=== PATIENT | male | born 1960 | race Caucasian/White ===

== ENCOUNTER 2023-07-03 07:34 | Emergency (ER) | payer OTHER, SELFPAY ==
[2023-07-03 07:43] VITALS: BP 149/103; PULSE 89; RESP 16; TEMP 36.6; O2SAT 97; BMI 27.3
--- NOTE | 2023-07-03 08:27 | ED_ITS ---
HPI - General Adult General Date Seen: 07/03/23 Chief complaint: Unspecified Complaint, Adult Stated complaint: Choking on ham Time Seen by Provider: 07/03/23 08:04 Source: patient Mode of arrival: ambulatory Limitations: no limitations History of Present Illness HPI narrative: Patient is a 63-year-old male presenting to the emergency department for considered move a piece of ham stuck in his esophagus. States this has happened multiple times before. The last few times he was able to resolve the symptoms after be given pop rocks. States this started around 07:00. He has been unable to tolerate oral secretions since then. States this feels just like his previous episodes. Does state he has some mild chest discomfort right were he feels like the food impaction is. He also states he has started feeling mildly short of breath since this started. Had endoscopy 20 years ago for an esophageal stricture. Does note he has had a few episodes over the past week we felt like something got stuck but was able to pass it on his own. Denies headache, lightheadedness, dizziness, nausea, weakness, numbness. No other concerns noted at this time Related Data Home Medications Medication Instructions Recorded Confirmed No Known Home Medications 07/03/23 07/03/23 Allergies Allergy/AdvReac Type Severity Reaction Status Date / Time No Known Drug Allergies Allergy Verified 07/19/22 11:32 Review of Systems Status of ROS: Reports: 10 or more systems reviewed and unremarkable except as noted in History and below [facility] Social History Smoking Status: Never smoker Exam Narrative: Exam Narrative: Const: Well-nourished, Well-developed, in mild distress, not tolerating oral secretions Eyes: PERRL, no conjunctival injection, and symmetrical lids HENT: Atraumatic external nose and ears. Moist mucous membranes. Neck: Symmetric, trachea midline, No thyromegaly. CVS: RRR, No murmurs or gallops. Peripheral pulses 2+ and equal in all extremities RESP: Unlabored respiratory effort. Clear to auscultation bilaterally. GI: Nontender/Nondistended, No rebound or guarding. MSK:Extremities w/o deformity, Normal Active ROM Skin: Warm, Dry. No rashes or lesions. Neuro: Normal Muscle tone, No focal neurological deficits. Psych: Awake, Alert, & Oriented x3. Appropriate mood and affect. Const: Vital Signs, click to edit/add: Vital Signs - 24 hr 07/03/23 07:43 Temperature 97.8 F Pulse Rate [Pulse Oximeter] 89 Respiratory Rate 16 Blood Pressure [Ri ght Upper Arm] 149/103 H Pulse Oximetry 97 Oxygen Delivery Me thod Room Air Course Vital Signs Vital signs: Initial Vital Signs Temperature 97.8 F 07/03/23 07:43 Temperature Source Temporal Artery Scan 07/03/23 07:43 Pulse Rate 89 07/03/23 07:43 Respiratory Rate 16 07/03/23 07:43 Blood Pressure 149/103 H 07/03/23 07:43 Blood Pressure Mean 118 H 07/03/23 07:43 Blood Pressure Position Supine 07/03/23 07:43 Pulse Oximetry 97 07/03/23 07:43 Oxygen Delivery Method Room Air 07/03/23 07:43 Vital Signs Temperature 97.8 F 07/03/23 07:43 Pulse Rate 89 07/03/23 07:43 Respiratory Rate 16 07/03/23 07:43 Blood Pressure 149/103 H 07/03/23 07:43 Pulse Oximetry 97 07/03/23 07:43 Oxygen Delivery Method Room Air 07/03/23 07:43 Temperature 97.8 F 07/03/23 07:43 Pulse Rate 89 07/03/23 07:43 Respiratory Rate 16 07/03/23 07:43 Blood Pressure 149/103 H 07/03/23 07:43 Pulse Oximetry 97 07/03/23 07:43 Oxygen Delivery Method Room Air 07/03/23 07:43 Medications Administered Medications: Discontinued Medications Generic Name Dose Route Start Last Admin Trade Name Freq PRN Reason Stop Dose Admin Glucagon 1 mg 07/03/23 08:34 07/03/23 08:52 Glucagon,Human Recombinant 1 Mg/Ml Vial IV 07/03/23 08:35 1 mg ONCE ONE Administration Ondansetron HCl 4 mg 07/03/23 08:34 07/03/23 08:52 Ondansetron 2 Mg/Ml Inj IVP 07/03/23 08:35 4 mg ONCE ONE Administration Simethicone/Sodium Bicarb/Citric Ac 1 each 07/03/23 08:11 07/03/23 08:40 Simethicone/Sod Bicarb/Cit Ac 1 Each Gran.Ef.Pk PO 07/03/23 08:12 1 each ONCE ONE Administration Simethicone/Sodium Bicarb/Citric Ac 1 each 07/03/23 09:13 07/03/23 09:23 Simethicone/Sod Bicarb/Cit Ac 1 Each Gran.Ef.Pk PO 07/03/23 09:14 1 each ONCE ONE Administration Medical Decision Making MDM Narrative Medical decision making narrative: Patient is 63-year-old male presenting for likely esophageal food bolus impaction. He is unable to tolerate secretions. This chest pain and mild shortness of breath started right the same times this is likely related. Do not believe this needs an extensive workup in the symptoms persist after improvement in the impaction. Initially was given EZ gas to try resolve the impaction. He was unable to tolerate this. Glucagon and Zofran was then given. After this he was feeling better but did not fit the symptoms were completely resolved. Is able to tolerate liquids. Tried to given EZ gas again since he was unable to swallow at all before. After this he now feels like the impaction is gone he is feeling much better. He feels safe to go home. He was able tolerate a sandwich. I believe his strictures coming back. I will says work on scheduling him an outpatient endoscopy. He is agreeable to this plan. Discharge Plan Discharge Clinical Impression: Esophageal obstruction due to food impaction Patient Disposition: Home, Self-Care Condition: Stable Instructions: Food Impaction (ED) Additional Instructions: The endoscopy clinic will call you to schedule an outpatient endoscopy for your likely esophageal stricture. Until this is done make sure you take very small bites. Return to emergency department for new or worsening symptoms Prescriptions: No Action No Known Home Medications Follow Up/Referrals: Provider,Not a Local [Primary Care Provider] - Stand Alone Forms: [facility] Info Instructions
[2023-07-03] MEDS: SIMETHICONE/SOD BICARB/CIT AC 1 EACH GRAN.EF.PK PO ×2 (08:40→09:23)
[2023-07-03] MEDS: ONDANSETRON 2 MG/ML inj 4 MG IVP (08:52)
[2023-07-03] MEDS: GLUCAGON,HUMAN RECOMBINANT 1 MG/ML VIAL IV (08:52)
== END 2023-07-03 09:58 | disposition home or self-care (01) ==
PROVIDERS: Emergency Provider Student in an Organized Health Care Education/Training Program
DX: K22.2 Esophageal obstruction (principal)
CPT/HCPCS: 96374; 99282; 99283; 99284; J1610; J2405

== ENCOUNTER 2023-08-26 07:13 | Outpatient (CLI) | payer OTHER, SELFPAY ==
--- NOTE | 2023-08-26 08:12 | W.ANESCHARGE ---
Anesthesia Charges Start Date/Time Anesthesia Start Date: 08/26/23 Anesthesia Start Time: 07:52 Stop Date/Time Anesthesia Stop Date: 08/26/23 Anesthesia Stop Time: 08:10
--- NOTE | 2023-08-26 09:40 | W.ANESCHARGE ---
Anesthesia Charges Start Date/Time Anesthesia Start Date: 08/26/23 Anesthesia Start Time: 07:52 Stop Date/Time Anesthesia Stop Date: 08/26/23 Anesthesia Stop Time: 08:10
== END 2023-08-26 07:14 | disposition home or self-care (01) ==
LOC: OP CLINIC 07:14
PROVIDERS: PCP Family Medicine; Visit Provider Surgery
DX: R13.10 Dysphagia, unspecified (principal); K22.89 Other specified disease of esophagus; K31.7 Polyp of stomach and duodenum
CPT/HCPCS: 00731; 43239; 88305; J2704; J3490